=== PATIENT | female | born 1950 | race Caucasian/White ===

== ENCOUNTER 2017-11-30 13:48 | Observation (INO) | payer MEDICARE ==
[2017-11-30 14:12] LABS: Bilirubin Negative (Negative); Blood, Urine Trace (Negative); Glucose, Urine (Dipstick) Negative (Negative); Leukocyte Large (Negative); Nitrite Negative (Negative); Protein, Urine (Dipstick) Negative (Neg-Trace); Urobilinogen 0.2 mg/dL (0.2-1.0); pH, Urine 5.5 (5.0-9.0)
[2017-11-30 14:19] LABS: Clarity Hazy (Clear); Specific Gravity, Urine 1.006 (1.005-1.030)
[2017-11-30 14:21] LABS: Bacteria/HPF 2+ HPF (None Seen); RBC/HPF 0-3 HPF (0-3); WBC/HPF 21-50 HPF (0-3)
[2017-11-30 14:47] LABS: #Basophils 0.2 thou/uL (0.0-0.2); #Eosinphils 0.2 thou/uL (0.0-0.7); #Lymphocytes 3.6 thou/uL (1.20-3.40); #Monocytes 1.1 thou/uL (0.11-0.59); #Neutrophils 11.1 thou/uL (1.40-6.50); %Basophils 1.3 % (0.0-1.0); %Eosinophils 1.4 % (0.0-10.0); %Monocytes 6.6 % (0.0-10.0); %Neutrophils 68.7 % (42.0-75.0); Hemoglobin 13.1 g/dL (12.0-16.0); Mean Corpuscular Hemoglobin 30.5 pg (27.0-31.0); Mean Corpuscular Volume 84.7 fL (78.0-98.0); Mean Platelet Volume 10.1 fL (7.4-10.4); Platelet Count 341 thou/uL (130-400); RBC Distribution Width 11.9 % (11.5-14.5); White Blood Cell (WBC) Count 16.2 thou/uL (4.8-10.8)
[2017-11-30] MEDS ORDERED: Sodium Chloride 0.9% 100 ML ONE (14:55)
[2017-11-30] MEDS ORDERED: cefTRIAXone\\ROCEPHIN 2 GM VIAL ONE (14:55)
[2017-11-30 14:56] LABS: Anion Gap 17 mmol/L (10-20); BUN (Urea Nitrogen) 75 mg/dL (9.8-20.1); Calc. Creatinine Clearance 0 mL/min (70-130); Calcium 9.8 mg/dL (7.8-10.44); Carbon Dioxide 16 mmol/L (23-31); Chloride 102 mmol/L (98-107); Estimated GFR-MDRD 42; Glucose 85 mg/dL (80-115); Potassium 4.2 mmol/L (3.5-5.1); Sodium 131 mmol/L (136-145)
[2017-11-30 15:02] LABS: CKMB 3.6 ng/mL (0-6.6); Troponin I Less than 0.010 ng/mL (< 0.028)
--- NOTE | 2017-11-30 15:12 | RAD ---
CHEST ONE VIEW: History: Altered mental status. UTI. FINDINGS: No comparison. Cardiac silhouette is magnified by projection. Pulmonary vasculature are unremarkable. Mediastinum is midline. No lobar consolidation or evidence of pneumothorax. IMPRESSION: No active cardiopulmonary abnormalities are demonstrated. POS: [facility]
--- NOTE | 2017-11-30 15:22 | CT ---
NONCONTRAST CT HEAD: DATE: 11/30/17. HISTORY: Altered mental status. COMPARISON: 09/18/04. FINDINGS: There is no evidence of a hemorrhage, acute infarction, mass effect, or midline shift. There is mild cerebral volume loss similar to the prior exam. The ventricular system is normal in size, shape, an d position. There is either mild focal dilatation of the most anterior aspect of the temporal horn l eft lateral ventricle versus adjacent encephalomalacia. However, this is a stable finding dating charo k to the study in 2004. There is a subcentimeter low-density focus inferior aspect left basal gangli a probably related to dilated perivascular space. The small extraaxial calcification right anterolat eral frontal region is again present and unchanged. There has been no interval change from the prior study. IMPRESSION: No acute intracranial abnormality is demonstrated. POS: [facility]
[2017-11-30 16:52] VITALS: BMI 18.3
[2017-11-30] MEDS ORDERED: diphenhydrAMINE 25 MG CAP PO PRN (17:21)
[2017-11-30] MEDS ORDERED: cloNIDine 0.1 MG TAB PO PRN (17:21)
[2017-11-30] MEDS ORDERED: hydrALAZINE 20 MG/ML VIAL SLOW IVP PRN (17:21)
[2017-11-30] MEDS ORDERED: Ondansetron ODT 4 MG TAB PO PRN (17:21)
[2017-11-30] MEDS ORDERED: Acetaminophen 500 MG TAB PO PRN (17:21)
[2017-11-30] MEDS ORDERED: Nicotine 21 MG PATCH TD SCH (17:21)
[2017-11-30] MEDS ORDERED: Ondansetron HCl/PF 4 MG/2 ML Vial IVP PRN (17:21)
[2017-11-30] MEDS: Sodium Chloride 0.9% 1,000 ML IV SCH (17:58)
[2017-11-30] MEDS ORDERED: Fluconazole 100 MG TAB PO SCH (18:00)
[2017-11-30] MEDS ORDERED: Famotidine 20 MG TAB PO SCH (21:00)
--- NOTE | 2017-11-30 23:53 | HP ---
DATE OF ADMISSION: 11/30/2017 PRIMARY CARE PROVIDER: Kimberlee Mcqueen M.D. CHIEF COMPLAINT: Burning with urination. HISTORY OF PRESENT ILLNESS: This is a 66-year-old female who presents to [facility] in transfer from [place] [facility] after presenting with burning with urination and vaginal itching over the last 1-2 weeks. The patient states she took over the cou nter Monistat 7 for approximately a week with worsening vaginal itching and burning with urination. The patient denied any specific vaginal discharge, vaginal bleeding, diarrhea or change to bowel habi ts. The patient denies any recent sexual activity; however, states her and her boyfriend do not have sex on a regular basis. The patient denies any prior history of sexually transmitted diseases. In the [place] [facility], patient apparently had some report of confusion; however, is aler t and oriented x3 currently. The patient denies any frequent urinary tract infections and denies any recent antibiotic exposure. The patient denies any travel history, family members with similar symp toms, documented fever, chills or rash. In the emergency room, the patient underwent general evaluat ion including urinalysis concerning for infectious process with elevated white blood cell count on CB C analysis. The patient received Rocephin 2 grams x1 dose in addition to normal saline x1 liter. PAST MEDICAL HISTORY: 1. Tobacco abuse. 2. History of hepatitis C, no current treatment. 3. Hypertension. PAST SURGICAL HISTORY: Reviewed and negative. CURRENT MEDICATIONS: 1. Benicar 20 mg 1 tab p.o. daily. 2. Monistat over the counter topical. ALLERGIES: PEPPER. FAMILY HISTORY: No inheritable diseases per patient report. SOCIAL HISTORY: The patient resides in [place], [place]. Smokes up to 2 packs of cigarettes daily. Occasional alcohol use. No illicit drug use. Functional of all activities of daily living. Four ch ildren. REVIEW OF SYSTEMS: The following complete review of systems was negative, unless otherwise mentioned in the HPI or below: Constitutional: Weight loss or gain, ability to conduct usual activities. Sk in: Rash, itching. Eyes: Double vision, pain. ENT/Mouth: Nose bleeding, neck stiffness, pain, ten derness. Cardiovascular: Palpitations, dyspnea on exertion, orthopnea. Respiratory: Shortness of breath, wheezing, cough, hemoptysis, fever or night sweats. Gastrointestinal: Poor appetite, abdomi nal pain, heartburn, nausea, vomiting, constipation, or diarrhea. Genitourinary: Urgency, frequency , dysuria, nocturia. Musculoskeletal: Pain, swelling. Neurologic/Psychiatric: Anxiety, depression . Allergy/Immunologic: Skin rash, bleeding tendency. Otherwise negative except as stated per HPI. PHYSICAL EXAMINATION: VITAL SIGNS: On admission, blood pressure 107/47, pulse 70, respiratory rate 16, temperature 98.4 de grees Fahrenheit, O2 saturation 96% on room air. GENERAL APPEARANCE: This is a 66-year-old female, alert and oriented x3, pleasant, in no a cute distress. HEENT: Pupils are equal, round, and reactive to light and accommodation. Extraocular muscles are in tact. No scleral icterus, no conjunctival injection. Nares patent. OP is clear. Teeth in poor rep air with nicotine staining and dental caries and periodontal disease noted. NECK: Supple, no cervical adenopathy, no thyromegaly, no carotid bruits, no JVD appreciated. Cervic al spine with full active and passive range of motion. No meningeal signs appreciated. CHEST: Diminished breath sounds in the bases bilaterally. Occasional rhonchi. CARDIOVASCULAR: S1, S2 with distant heart sounds. No murmur, rub or gallop appreciated. ABDOMEN: Flat, soft, nontender, nondistended. Bowel sounds are positive in all four quadrants. The re is no hepatosplenomegaly, no abdominal bruits, no rebound or guarding appreciated. EXTREMITIES: Warm and dry with fair turgor. No clubbing, cyanosis or asymmetric edema appreciated. Pulses palpable distally at the dorsalis pedis, posterior tibial, and popliteal arteries bilaterally . Capillary refill less than 2 seconds. GENITOURINARY: Per ER report showed normal findings. Exam not repeated currently. PERTINENT LABORATORY AND X-RAY FINDINGS: Sodium 131, potassium 4.2, chloride 102, CO2 of 16, BUN 75, creatinine 1.26, estimated GFR of 42, glucose 85. Lactic acid level 1.5, calcium 9.8. Troponin I n egative x1. CBC showed a white blood cell count of 16.2, hemoglobin 13, hematocrit 36, platelet coun t 341 with 69% neutrophils. Urinalysis showed large leukocyte esterase with 21-50 wbc's per high pow er field, 11-20 squamous epithelial cells and 2+ bacteria. CT of the brain without contrast dated showed no acute intracranial process. Portable chest x-ray dated 11/30/2017 showed no acute cardiopulmonary process. EKG dated 11/30/2017 by my review and interpretation shows sinus mechanism , heart rates in the 60s. Normal R-wave progression noted in the precordial leads. Normal axis. No acute ST-T wave changes appreciated. ASSESSMENT AND PLAN: 1. Urinary tract infection. The patient will be observed on the medical floor. We will continue Ro cephin 2 grams IV q.24 hours. Urine culture pending. Continue intravenous normal saline 100 mL per hour. Encourage increased oral free water intake. 2. Acute kidney injury. Suspect secondary to dehydration. Hold Benicar. Continue intravenous norm al saline at 100 mL per hour. Repeat creatinine in the a.m. Avoid nephrotoxic agents and contrast m edia. 3. Hyponatremia. We will continue intravenous normal saline as outlined previously. Repeat sodium level in the a.m. 4. Vaginitis. Suspect questionable candidiasis. Initiate Diflucan 100 mg p.o. daily. 5. Hypertension. Resume home antihypertensive regimen and monitor clinical response. 6. Tobacco abuse. We will offer smoking cessation resources prior to discharge. Transdermal nicoti ne 21 mg daily. 7. Prophylaxis. Sequential compression devices while in bed. Pepcid 20 mg p.o. b.i.d. 8. Code status is FULL. Surrogate medical decision maker is Jona Irizarry
[2017-12-01] MEDS ORDERED: Melatonin 3 MG TAB PO PRN (01:27)
[2017-12-01] MEDS: Sodium Chloride 0.9% 1,000 ML IV SCH (04:49)
[2017-12-01 06:22] LABS: Band 2 % (5-11); Eosinophils 1 % (0-10); Hemoglobin 11.1 g/dL (12.0-16.0); Lymphocytes 35 % (21-51); MDiff Complete? YES; Mean Corpuscular HGB CONC 33.9 g/dL (32.0-36.0); Mean Corpuscular Volume 91.4 fL (78.0-98.0); Mean Platelet Volume 9.2 fL (7.4-10.4); Metamyelocyte 1 % (0-0); Monocytes 8 % (0-10); Myelocyte 1 % (0-0); Neutrophil 50 % (42-75); PLT Morphology Comment Appears Adequate; Platelet Count 288 thou/uL (130-400); RBC Distribution Width 12.8 % (11.5-14.5); Red Blood Cell (RBC) Count 3.59 mill/uL (4.20-5.40); White Blood Cell (WBC) Count 10.3 thou/uL (4.8-10.8)
[2017-12-01 06:29] LABS: Anion Gap 12 mmol/L (10-20); BUN (Urea Nitrogen) 54 mg/dL (9.8-20.1); Calc. Creatinine Clearance 46 mL/min (70-130); Calcium 8.4 mg/dL (7.8-10.44); Carbon Dioxide 18 mmol/L (23-31); Chloride 112 mmol/L (98-107); Estimated GFR-MDRD 61; Glucose 91 mg/dL (80-115); Potassium 4.3 mmol/L (3.5-5.1); Sodium 138 mmol/L (136-145)
[2017-12-01 08:13] VITALS: BP 98/51
[2017-12-01 08:14] VITALS: TEMP 97.3
[2017-12-01] MEDS ORDERED: cefTRIAXone\\ROCEPHIN 2 GM in Sodium Chloride 0.9% 100 ML IVPB SCH (15:00)
--- NOTE | 2017-12-01 23:47 | DIS ---
DATE OF ADMISSION: 11/30/2017 DATE OF DISCHARGE: 12/01/2017 DISCHARGE DIAGNOSES: 1. Urinary tract infection. 2. Acute kidney injury. 3. Hyponatremia. 4. Vaginitis. 5. Hypertension. 6. Tobacco abuse. 7. Leaving against medical advice. CONSULTATIONS: None. PERTINENT LABORATORY AND X-RAY FINDINGS: Sodium ranging between 131-138, creatinine ranging between 0.92-1.26, estimated GFR ranging between 42-61. Lactic acid level is 1.5. Troponin I is negative x1 . CBC showed a white blood cell count ranging between 10.3-16.2. Urine culture showed 50,000-75,000 colonies of gram-negative rods. CT of the brain without contrast dated 11/30/2017 showed no acute i ntracranial process. Portable chest x-ray dated 11/30/2017 showed no acute cardiopulmonary process. HOSPITAL COURSE: The patient was placed in observation status, presenting with urinary tract infecti on and vaginitis. The patient was initially placed on Rocephin 2 grams IV q.24 hours with additional IV fluids with normal saline. The patient also received Diflucan. On 12/01/2017, the patient appar ently decided to leave against medical advice abruptly stating she was done with treatment. The leslie ent signed all AMA forms and left the hospital on 12/01/2017.
== END 2017-12-01 09:12 | disposition home or self-care (01) ==
LOC: SCSER 13:48 → 2SW 15:38
PROVIDERS: ADMIT Internal Medicine; ATTEND Internal Medicine
DX: N39.0 Urinary tract infection, site not specified (principal); N17.9 Acute kidney failure, unspecified; E87.1 Hypo-osmolality and hyponatremia; N76.0 Acute vaginitis; I10 Essential (primary) hypertension; F17.210 Nicotine dependence, cigarettes, uncomplicated; Z79.899 Other long term (current) drug therapy; Z91.018 Allergy to other foods; Z53.21 Procedure and treatment not carried out due to patient leaving prior to being seen by health care provider
CPT/HCPCS: 70450; 71045; 80048 ×2; 82553; 83605; 84484; 85007; 85025; 85027; 87077; 87086; 87186; 93005; 96361 ×2; 96365; 99285; G0378; 36415; 81003; 81015; J0696; J7050